=== PATIENT | female | born 1995 | race Caucasian/White ===

== ENCOUNTER 2020-02-26 12:22 | Emergency (ER) | payer MEDICAID ==
[~2020-02-26] VITALS: Ht 160 cm; Wt 113.6 kg
[~2020-02-26 12:22] MED LIST: NO HOME MEDS
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
--- NOTE | 2020-02-26 13:14 | NUR ---
Pt appears fixated on "Pizzag[employer]," saying, "It's something I read on social media. The name keeps appearing in my brain. It's like a struggle against good and evil going on in my head."
[2020-02-26 13:23] LABS: BASOPHILS # (AUTO) 0.1 X10'3 (0-0.2); BASOPHILS % (AUTO) 0.6 % (0-1); EOSINOPHILS % (AUTO) 0 % (0-6); HEMATOCRIT 43.4 % (35.0-45.0); HEMOGLOBIN 14.4 g/dl (12.0-16.0); LYMPHOCYTES # (AUTO) 1.4 X10'3 (1.1-4.8); LYMPHOCYTES % (AUTO) 5.7 % (21-51); MEAN CORPUSCULAR HEMOGLOBIN 28.6 PG (27.0-31.0); MEAN CORPUSCULAR HGB CONC 33.2 g/dL (33.0-36.5); MEAN CORPUSCULAR VOLUME 86.2 FL (78-98); MEAN PLATELET VOLUME 10.1 FL (7.4-10.4); MONOCYTES # (AUTO) 0.6 X10'3 (0-0.9); MONOCYTES % (AUTO) 2.5 % (2-12); NEUTROPHILS # (AUTO) 22.2 X10'3 (1.8-7.7); NEUTROPHILS % (AUTO) 91.2 % (42-75); PLATELET COUNT 308 X10'3 (140-440); RED BLOOD COUNT 5.04 X10'6 (4.20-5.60); RED CELL DISTRIBUTION WIDTH 14.4 % (11.5-14.5); WHITE BLOOD COUNT 24.4 X10'3 (4.5-11.0)
[2020-02-26 13:29] LABS: ALANINE AMINOTRANSFERASE 31 U/L (12-78); ALBUMIN 4.2 G/DL (3.4-5.0); ALBUMIN/GLOBULIN RATIO 0.9 (1.1-1.5); ALKALINE PHOSPHATASE 78 IU/L (46-116); ANION GAP 17 (8-16); ASPARTATE AMINO TRANSFERASE 22 U/L (10-37); BILIRUBIN,TOTAL 0.8 MG/DL (0.1-1.0); BLOOD UREA NITROGEN 14 MG/DL (7-18); BUN/CREATININE RATIO 11.1 (6.6-38.0); CALCIUM 9.1 MG/DL (8.5-10.1); CHLORIDE 100 MMOL/L (99-107); CREATININE 1.26 MG/DL (0.40-0.90); GLUCOSE 183 MG/DL (70-104); POTASSIUM 3.3 MMOL/L (3.5-5.1); SODIUM 136 MMOL/L (135-145); TOTAL CARBON DIOXIDE 18.9 MMOL/L (24-32); eGFR 52 ML/MIN
[2020-02-26 13:37] LABS: ETHANOL < 0.010 GM/DL (0.0-0.010)
[2020-02-26 14:00] LABS: URINE HCG NEGATIVE (NEG)
[2020-02-26 14:12] LABS: URINE AMPHETAMINE SCREEN NEGATIVE (Neg); URINE BARBITUATE SCREEN NEGATIVE (Neg); URINE BENZODIAZEPINES SCREEN NEGATIVE (Neg); URINE CANNABINOID SCREEN POSITIVE (Neg); URINE COCAINE SCREEN NEGATIVE (Neg); URINE METHADONE SCREEN NEGATIVE (Neg); URINE OPIATE SCREEN NEGATIVE (Neg); URINE PHENCYCLIDINE SCREEN NEGATIVE (Neg)
[2020-02-26] MEDS ORDERED: LORazepam 1 MG tablet PO ONE (14:30)
[2020-02-26] MEDS ORDERED: normal saline 1000ML IV soln IVB ONE ×2 (14:30→15:45)
[2020-02-26] MEDS ORDERED: OLANZapine 2.5MG tablet PO ONE (14:30)
[2020-02-26 15:21] LABS: CLARITY,URINE CLOUDY (Clear); COLOR,URINE YELLOW (Yellow); GLUCOSE, URINE NEGATIVE (Neg); KETONES,URINE >=80 mg/dl (Neg); LEUKOCYTE ESTERASE ,URINE NEGATIVE (Neg); NITRITES, URINE NEGATIVE (Neg); OCCULT BLOOD,URINE MODERATE (Neg); PH,URINE 5.5 (4.8-8.0); PROTEIN,URINE 100 mg/dl (Neg)
[2020-02-26 15:28] LABS: UA COLLECTION TYPE CLN CATCH MIDSTREAM
[2020-02-26 15:29] LABS: BACTERIA,URINE FEW /HPF (Neg); MUCUS STRANDS NONE SEEN /LPF (Neg); RBC,URINE 0-2 /HPF (0-2); SQUAMOUS EPITHELIAL CELL,UR MANY /LPF (FEW); WBC,URINE 0-4 /HPF (0-4)
[2020-02-26 15:30] LABS: AMORPHOUS URATES 4+
--- NOTE | 2020-02-26 15:40 | NUR ---
Second Liter started. EDMD Guzman requests repeat labs following fluids.
[2020-02-26] MEDS ORDERED: CefTRIAXone 2gm/D5W 50ml 50 ML IV ONE (15:45)
[2020-02-26 16:01] LABS: CREATINE KINASE 276 U/L (26-192)
[2020-02-26 17:30] LABS: BASOPHILS # (AUTO) 0.2 X10'3 (0-0.2); BASOPHILS % (AUTO) 0.9 % (0-1); EOSINOPHILS % (AUTO) 0 % (0-6); LYMPHOCYTES # (AUTO) 2.3 X10'3 (1.1-4.8); LYMPHOCYTES % (AUTO) 12.2 % (21-51); MEAN CORPUSCULAR HGB CONC 32.5 g/dL (33.0-36.5); MEAN PLATELET VOLUME 9.5 FL (7.4-10.4); MONOCYTES # (AUTO) 1.1 X10'3 (0-0.9); MONOCYTES % (AUTO) 5.6 % (2-12); NEUTROPHILS # (AUTO) 15.5 X10'3 (1.8-7.7); NEUTROPHILS % (AUTO) 81.3 % (42-75); PLATELET COUNT 233 X10'3 (140-440); RED CELL DISTRIBUTION WIDTH 14.6 % (11.5-14.5); WHITE BLOOD COUNT 19.1 X10'3 (4.5-11.0)
[2020-02-26 17:42] LABS: ALBUMIN 3.1 G/DL (3.4-5.0); ANION GAP 14 (8-16); BLOOD UREA NITROGEN 10 MG/DL (7-18); BUN/CREATININE RATIO 12.8 (6.6-38.0); CALCIUM 7.3 MG/DL (8.5-10.1); CHLORIDE 105 MMOL/L (99-107); CREATININE 0.78 MG/DL (0.40-0.90); GLUCOSE 94 MG/DL (70-104); POTASSIUM 3.3 MMOL/L (3.5-5.1); SODIUM 140 MMOL/L (135-145); TOTAL CARBON DIOXIDE 21.1 MMOL/L (24-32); eGFR > 90 ML/MIN
--- NOTE | 2020-02-26 20:00 | NUR ---
Patient came from main ER. The immediately went to sleep. Evaluation defered until patient awakens, most likely in am.
--- NOTE | 2020-02-26 21:05 | NUR ---
Patient is sleeping quietly on her left side. Patient self repositions.
--- NOTE | 2020-02-26 22:03 | NUR ---
Patient is sleeping quietly in a supine position. Patient self repositions. Normal resp rate and depth.
--- NOTE | 2020-02-27 01:00 | NUR ---
Patient sleeping quietly on her left side.
--- NOTE | 2020-02-27 02:07 | NUR ---
Patient sleeping on her right side. No distress. In view from nursing station.
--- NOTE | 2020-02-27 03:10 | NUR ---
Patient repositioned onto her left side. Sleeping quietly.
[2020-02-27] MEDS ORDERED: RISP0.5T74 PO (04:22)
[2020-02-27] MEDS ORDERED: PRAZ2CAP2 PO (04:25)
--- NOTE | 2020-02-27 04:33 | NUR ---
Patient sleeping quietly in supine position.
--- NOTE | 2020-02-27 05:59 | NUR ---
Morning vital signs taken. Patient ambulatory to bathroom to void.
--- NOTE | 2020-02-27 07:01 | NUR ---
pt was sitting at bedside ,came to pt and asked what is going on if she need anytghing ,pt said she is confused,pt said if i can contact her sister" freddy simms ",pt said she remember she live in family and she has roommate ,pt said her mother is in orgeon with skilled [employer] ,pt said she remember police bringing her here but not sure why ,pt said is it blood on my nails?pt nail bed looks unkempt ,pt grandmother called regarding pt meds pt take resperidone 0.25 mg in am and 0.5 at night ,prozosin 1 mg hs.pt gmother said pt has not taken her meds since she got it.
--- NOTE | 2020-02-27 07:08 | NUR ---
pt now talking to her gmother as per grandmother pal,first thing pt asked "are you okay grandma ,have i done something wrong to you ?.pt saying sorry and remorse.will cont to monitor.
[2020-02-27] MEDS ORDERED: RISP0.253 PO (07:11)
[2020-02-27] MEDS ORDERED: PRAZ1CAP5 PO (07:13)
--- NOTE | 2020-02-27 07:15 | NUR ---
pt went to restroom to urinate.will cont to monitor.
--- NOTE | 2020-02-27 07:21 | NUR ---
notified dr cornejo regarding pt vitals bp 175/105,pt medication changed reviwed by the provider will fax it to the pharmacy.
[2020-02-27] MEDS ORDERED: LORazepam 1 MG tablet PO ONE (07:25)
--- NOTE | 2020-02-27 07:29 | NUR ---
dr cornejo in overflow to assess the all the patients.
--- NOTE | 2020-02-27 07:40 | NUR ---
asked the pt is she is suicidal or have thoughts to hurt herself as per pt "i known something is wrong with my head but i do not want to kill myself ,never".
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
[2020-02-27 07:59] VITALS: BP 135/85
[2020-02-27] MEDS ORDERED: risperiDONE 0.25mg tablet PO SCH (08:00)
--- NOTE | 2020-02-27 08:31 | NUR ---
pt has completed her breakfst,taken her morning meds without any difficullity .notified dr cornejo that pt bp rechecked in 134/83 non admin the ativian dose as pt is more relaxed. no sign of distress noted .resting in bed quietly .will cont to monitor.
--- NOTE | 2020-02-27 08:55 | NUR ---
camilo bañuelos at bedside assessing the pt.pt is cooperatve anawering all the question.
--- NOTE | 2020-02-27 09:10 | NUR ---
pt grand mother phone number [phone].no given to [facility] marika bñauelos.
--- NOTE | 2020-02-27 09:11 | NUR ---
pt spoke to [facility] sleeve fixer,now using restroom.will cont to monitor.
--- NOTE | 2020-02-27 09:48 | NUR ---
pt appear sleeping on her lft lateral position at this time ,no sign of distress noted,as per [facility] marika he will get call back from grandmother in few hours and then he will see what is the plan for pt.
--- NOTE | 2020-02-27 11:10 | NUR ---
pt was talking to [facility] marika bañuelos regarding to go home and the fact she is scared to be here ,pt wants to talk to her grandmother phone provided called on [phone] ,pt expressing her feeling with grandmother ,shilpig at same time,will cont to monitor.
--- NOTE | 2020-02-27 12:17 | NUR ---
pt getting d/c pt getting taxi ride to [place] at [address] [facility] [id number].pt grandmother going to pay for the ride ,pt requesting for her clothes jennifer she can get dress up,pt is excited to go back ,pt stated that she is feeling lot better .
[2020-02-27] MEDS ORDERED: risperiDONE 0.5mg tablet PO SCH (21:00)
[2020-02-27] MEDS ORDERED: prazosin 1mg capsule PO SCH ×2 (21:00)
== END 2020-02-27 12:32 | disposition home or self-care (01) ==
LOC: ER 12:22
DX: S60.812A Abrasion of left wrist, initial encounter (principal); S60.811A Abrasion of right wrist, initial encounter; F25.9 Schizoaffective disorder, unspecified; F41.9 Anxiety disorder, unspecified; F32.9 Major depressive disorder, single episode, unspecified; Z79.899 Other long term (current) drug therapy; X58.XXXA Exposure to other specified factors, initial encounter; Y93.89 Activity, other specified; Y92.89 Other specified places as the place of occurrence of the external cause; Y99.8 Other external cause status
CPT/HCPCS: 36415; 80048; 80053; 80305; 80320; 81001; 81025; 82550; 83605; 84145; 84443; 85025; 87040; 96361; 96365; 99285; J0696; J7030

== ENCOUNTER 2020-04-16 09:57 | Emergency (ER) | payer MEDICAID ==
[~2020-04-16] VITALS: Ht 160 cm; Wt 102.3 kg
[~2020-04-16 09:57] MED LIST changes: -NO HOME MEDS; +PRAZ1CAP5 PO; +RISP0.253 PO; +RISP0.5T74 PO
--- NOTE | 2020-04-16 10:15 | NUR ---
CALLED POISON CONTROL FOR INGESTION ERROR OF PROPANOLOL 10MG (2 TABS), PRAZOSIN 1MG (2TABS), AND RISPERODONE 1MG (2 TABS). SPOKE WITH [place]. NO BLOOD WORK NECESSARY. CONTINUE TO MONITOR FOR BRADYCARDIA AND HYPOTENSION.
[2020-04-16] MEDS ORDERED: ondansetron 4mg rapidly disintigrating tab PO ONE (10:25)
[2020-04-16 11:06] VITALS: BP 165/121
== END 2020-04-16 12:18 | disposition home or self-care (01) ==
LOC: ER 09:57
DX: T50.901A Poisoning by unspecified drugs, medicaments and biological substances, accidental (unintentional), initial encounter (principal); R11.2 Nausea with vomiting, unspecified; F41.9 Anxiety disorder, unspecified; F32.9 Major depressive disorder, single episode, unspecified; Z79.899 Other long term (current) drug therapy; Y92.89 Other specified places as the place of occurrence of the external cause
CPT/HCPCS: 93005; 99283

== ENCOUNTER 2020-04-18 08:47 | Emergency (ER) | payer MEDICAID ==
[~2020-04-18] VITALS: Ht 177.8 cm; Wt 105.0 kg
[2020-04-18 08:53] VITALS: BP 166/117
[2020-04-18 10:02] LABS: URINE HCG NEGATIVE (NEG)
[2020-04-18 10:10] LABS: BASOPHILS # (AUTO) 0.1 X10'3 (0-0.2); BASOPHILS % (AUTO) 0.4 % (0-1); EOSINOPHILS # (AUTO) 0.1 X10'3 (0-0.9); EOSINOPHILS % (AUTO) 0.8 % (0-6); HEMATOCRIT 39.4 % (35.0-45.0); HEMOGLOBIN 13.3 g/dl (12.0-16.0); LYMPHOCYTES # (AUTO) 1.9 X10'3 (1.1-4.8); LYMPHOCYTES % (AUTO) 14.6 % (21-51); MEAN CORPUSCULAR HEMOGLOBIN 28.8 PG (27.0-31.0); MEAN CORPUSCULAR HGB CONC 33.7 g/dL (33.0-36.5); MEAN CORPUSCULAR VOLUME 85.6 FL (78-98); MONOCYTES # (AUTO) 0.6 X10'3 (0-0.9); MONOCYTES % (AUTO) 4.3 % (2-12); NEUTROPHILS # (AUTO) 10.4 X10'3 (1.8-7.7); NEUTROPHILS % (AUTO) 79.9 % (42-75); PLATELET COUNT 235 X10'3 (140-440); RED BLOOD COUNT 4.61 X10'6 (4.20-5.60); RED CELL DISTRIBUTION WIDTH 14.6 % (11.5-14.5); WHITE BLOOD COUNT 13.1 X10'3 (4.5-11.0)
[2020-04-18 10:16] LABS: URINE AMPHETAMINE SCREEN NEGATIVE (Neg); URINE BARBITUATE SCREEN NEGATIVE (Neg); URINE BENZODIAZEPINES SCREEN NEGATIVE (Neg); URINE CANNABINOID SCREEN POSITIVE (Neg); URINE COCAINE SCREEN NEGATIVE (Neg); URINE METHADONE SCREEN NEGATIVE (Neg); URINE OPIATE SCREEN NEGATIVE (Neg); URINE PHENCYCLIDINE SCREEN NEGATIVE (Neg)
[2020-04-18 10:25] LABS: ALANINE AMINOTRANSFERASE 32 U/L (12-78); ALBUMIN 3.8 G/DL (3.4-5.0); ALBUMIN/GLOBULIN RATIO 0.9 (1.1-1.5); ALKALINE PHOSPHATASE 86 IU/L (46-116); ANION GAP 6 (8-16); ASPARTATE AMINO TRANSFERASE 21 U/L (10-37); BILIRUBIN,TOTAL 0.4 MG/DL (0.1-1.0); BLOOD UREA NITROGEN 10 MG/DL (7-18); BUN/CREATININE RATIO 11.4 (6.6-38.0); CALCIUM 8.4 MG/DL (8.5-10.1); CHLORIDE 105 MMOL/L (99-107); CREATININE 0.88 MG/DL (0.40-0.90); ETHANOL < 0.010 GM/DL (0.0-0.010); GLUCOSE 124 MG/DL (70-104); POTASSIUM 3.6 MMOL/L (3.5-5.1); SODIUM 138 MMOL/L (135-145); TOTAL CARBON DIOXIDE 26.9 MMOL/L (24-32); TOTAL PROTEIN 7.9 G/DL (6.4-8.2); eGFR 79 ML/MIN
--- NOTE | 2020-04-18 14:15 | NUR ---
Rec patient from main ER and escorted to bed 22.
--- NOTE | 2020-04-18 15:17 | NUR ---
Patient seen by [facility] Jaylyn Tovar
--- NOTE | 2020-04-18 16:24 | NUR ---
Per [facility] Jaylyn Tovar, safety plan was made with patient and grandmother for patient to be discharged home.
== END 2020-04-18 18:29 | disposition home or self-care (01) ==
LOC: ER 08:48
DX: F79 Unspecified intellectual disabilities (principal); F41.9 Anxiety disorder, unspecified; R41.0 Disorientation, unspecified; F32.9 Major depressive disorder, single episode, unspecified; Z79.899 Other long term (current) drug therapy
CPT/HCPCS: 36415; 80053; 80305; 80320; 81025; 85025; 99284